=== PATIENT | male | born 1970 | race Caucasian/White ===

== ENCOUNTER 2024-10-19 02:39 | Emergency (ER) | payer SELFPAY ==
[2024-10-19] MEDS ORDERED: Nitroglycerin 0.4 MG TAB 1 EACH ONE (02:53)
[2024-10-19 03:07] LABS: Band 3 % (5-11); Eosinophils 4 % (0-10); Lymphocytes 36 % (21-51); MDiff Complete? YES; Monocytes 5 % (0-10); Neutrophil 52 % (42-75)
[2024-10-19 03:08] LABS: Hematocrit 49.4 % (42.0-52.0); Hemoglobin 16.1 g/dL (14.0-18.0); Mean Corpuscular HGB CONC 32.6 g/dL (32.0-36.0); Mean Corpuscular Hemoglobin 31.2 pg (27.0-31.0); Mean Corpuscular Volume 95.7 fl (78.0-98.0); Mean Platelet Volume 7.6 fL (7.4-10.4); Platelet Count 263 10x3/uL (130-400); RBC Distribution Width 11.7 % (11.5-14.5); Red Blood Cell (RBC) Count 5.16 mill/uL (4.70-6.10); White Blood Cell (WBC) Count 7.2 10x3/uL (4.8-10.8)
[2024-10-19 03:22] LABS: ALT (SGPT) 42 U/L (8-55); AST (SGOT) 24 U/L (5-34); Alkaline Phosphatase 73 U/L (40-110); Anion Gap 16 mmol/L (10-20); BUN (Urea Nitrogen) 15 mg/dL (8.4-25.7); Bilirubin, Total 0.3 mg/dL (0.2-1.2); Calc. Creatinine Clearance 0 mL/min (70-130); Calcium 9.8 mg/dL (7.8-10.44); Carbon Dioxide 24 mmol/L (22-29); Chloride 103 mmol/L (98-107); Estimated GFR 89; Globulin 3.4 g/dL (2.4-3.5); Glucose 162 mg/dL (70-105); Potassium 3.8 mmol/L (3.5-5.1); Protein, Total 7.4 g/dL (6.0-8.3); Sodium 139 mmol/L (136-145); Troponin I Less than 0.010 ng/mL (< 0.028)
[2024-10-19] MEDS ORDERED: Furosemide 40 MG (4 mL) VIAL ONE (03:25)
== END 2024-10-19 06:21 | disposition short-term general hospital (02) ==
LOC: MADERS 02:39
DX: I11.0 Hypertensive heart disease with heart failure (principal); I50.9 Heart failure, unspecified
CPT/HCPCS: 71045; 80053; 83880; 84484; 85025; 93005; 96374; J1940